=== PATIENT | female | born 1985 | race Hispanic/Latino ===

== ENCOUNTER 2018-03-31 20:48 | Emergency (ER) | payer SELFPAY ==
[2018-03-31] MEDS ORDERED: Ketorolac Tromethamine 30 MG/ML VIAL ONE (21:20)
[2018-03-31] MEDS ORDERED: Metoclopramide HCl 10 MG/2 ML VIAL ONE (21:20)
[2018-03-31] MEDS ORDERED: Lorazepam 2 MG/ML VIAL ONE (22:01)
--- NOTE | 2018-03-31 22:40 | CT ---
CT BRAIN: HISTORY: Headaches. TECHNIQUE: Noncontrast enhanced CT images of the brain are obtained. Brain and bone windows are obtained. FINDINGS: The brain is unremarkable. No evidence of intracranial masses, hemorrhages, strokes, or contusions s een. Ventricles are of normal size. IMPRESSION: Normal CT brain. POS: [facility]
== END 2018-03-31 23:15 | disposition home or self-care (01) ==
LOC: ERS 20:48
DX: R51 Headache (principal); F41.9 Anxiety disorder, unspecified
CPT/HCPCS: 70450; 96365; 96366; 96375; J1885; J2060; J2765

== ENCOUNTER 2023-01-14 22:47 | Emergency (ER) | payer SELFPAY ==
[2023-01-14] MEDS ORDERED: Ketorolac Tromethamine 30 MG/ML VIAL ONE (23:43)
[2023-01-14] MEDS ORDERED: Ondansetron PF 4 MG/2 ML Vial ONE (23:43)
[2023-01-14] MEDS ORDERED: Metoclopramide HCl 10 MG/2 ML VIAL ONE (23:43)
[2023-01-14] MEDS ORDERED: LORazepam 2 MG/ML SYR.(CARPUJECT) ONE (23:43)
[2023-01-14] MEDS ORDERED: Magnesium 2 GM/50 ML BAG (IN WATER) ONE (23:43)
[2023-01-14 23:52] LABS: #Eosinphils 0.3 thou/uL (0.0-0.7); #Monocytes 0.8 thou/uL (0.11-0.59); #Neutrophils 7.8 thou/uL (1.40-6.50); %Basophils 0.4 % (0.0-1.0); %Eosinophils 2.2 % (0.0-10.0); %Lymphocytes 21.2 % (21.0-51.0); %Monocytes 7.4 % (0.0-10.0); %Neutrophils 68.4 % (42.0-75.0); Hematocrit 36.7 % (36.0-47.0); Hemoglobin 12.6 g/dL (12.0-16.0); Mean Corpuscular HGB CONC 34.3 g/dL (32.0-36.0); Mean Corpuscular Hemoglobin 28.4 pg (27.0-31.0); Mean Corpuscular Volume 82.8 fl (78.0-98.0); Mean Platelet Volume 9.8 fL (7.4-10.4); Platelet Count 310 10x3/uL (130-400); RBC Distribution Width 13.2 % (11.5-14.5); Red Blood Cell (RBC) Count 4.43 mill/uL (4.20-5.40); White Blood Cell (WBC) Count 11.4 10x3/uL (4.8-10.8)
[2023-01-15 00:11] LABS: ALT (SGPT) 25 U/L (8-55); AST (SGOT) 23 U/L (5-34); Albumin 3.9 g/dL (3.5-5.0); Alkaline Phosphatase 129 U/L (40-110); Anion Gap 12 mmol/L (10-20); BUN (Urea Nitrogen) 18 mg/dL (7.0-18.7); Bilirubin, Total 0.3 mg/dL (0.2-1.2); Calc. Creatinine Clearance 0 mL/min (70-130); Calcium 8.4 mg/dL (7.8-10.44); Carbon Dioxide 20 mmol/L (22-29); Chloride 108 mmol/L (98-107); Estimated GFR 90; Globulin 3.5 g/dL (2.4-3.5); Glucose 149 mg/dL (70-105); Potassium 2.9 mmol/L (3.5-5.1); Protein, Total 7.4 g/dL (6.0-8.3); Sodium 137 mmol/L (136-145)
[2023-01-15] MEDS ORDERED: Potassium Chloride 20 MEQ/100 ML PREMIX BAG ONE (00:48)
[2023-01-15 00:59] LABS: Bacteria/HPF None Seen HPF (None Seen); Bilirubin Negative (Negative); Blood, Urine Negative (Negative); CAUTI Indications for Culture Dysuria,urgency,freq; Clarity Clear (Clear); Glucose, Urine (Dipstick) Normal (Negative); Ketone, Urine Negative (Negative); Leukocyte 250 Leu/uL (Negative); Nitrite Negative (Negative); Protein, Urine (Dipstick) Negative (Neg-Trace); RBC/HPF 0-3 HPF (0-3); Specific Gravity, Urine 1.011 (1.002-1.036); Urobilinogen Normal mg/dL (Less than 2); WBC/HPF 21-50 HPF (0-3); pH, Urine 6.5 (5.0-9.0)
[2023-01-15 01:02] LABS: Urine Culture Reflex Yes Yes
[2023-01-15] MEDS ORDERED: Pot Chloride/Pot Bicarb/Cit Ac 25 mEq Effervescent Tablet ONE (01:10)
== END 2023-01-15 04:27 | disposition home or self-care (01) ==
LOC: ERS 22:47
DX: R51.9 Headache, unspecified (principal)
CPT/HCPCS: 36415; 70450; 80053; 81001; 85025; 87086; 96365; 96366; 96367; 96375; J1885; J2060; J2405; J2765; J3475; J3480